=== PATIENT | female | born 1965 ===

== ENCOUNTER → 2021-03-01 03:36 | Outpatient (REF) | payer OTHER, SELFPAY ==
[2021-03-01 18:14] LABS: SARS-CoV-2 RNA PCR Negative
== END ==
LOC: ANHCOVIDDT 03:36
DX: Z20.822 Contact with and (suspected) exposure to COVID-19 (principal); R51.9 Headache, unspecified; R53.83 Other fatigue
CPT/HCPCS: C9803; U0003; U0005